=== PATIENT | male | born 1960 | race Caucasian/White ===

== ENCOUNTER 2020-05-01 04:22 | Emergency (ER) | payer OTHER, BC ==
[2020-05-01 04:29] VITALS: PULSE 89; RESP 16; TEMP 99
[2020-05-01] MEDS ORDERED: IBUPROFEN 600 MG TAB PO STA (05:01)
--- NOTE | 2020-05-01 05:09 | ED ---
Back Pain HPI - General Chief Complaint: Back Pain/Injury Stated Complaint: [facility] hip and neck injury Time Seen by Provider: 05/01/20 04:34 Source: patient Limitations: no limitations - History of Present Illness Initial Comments: This patient is 59-year-old man who presents to have evaluation of low back and neck injury. The patient states that he was at work tonight and he was tempted to raise a shelf that was stuck. He states that he lifted and it broke loose and then he felt a twinge in his low back and also his neck. The patient states that after. Time he was going to range of motion of his neck, and then he felt a subtle pop in the symptoms there resolved. He states that he does continue to have some right low back tightness. No radiation to the legs. No change in bladder or bowel function. No abdominal pain. MD Complaint: back pain, back injury -: minutes(s) Similar Symptoms Previously: No Place: work Radiation: none Severity: moderate Quality: aching Consistency: constant Improves With: none Worsens With: none Context: while lifting Associated Symptoms: denies other symptoms - Related Data Home Medications Medication Instructions Recorded Confirmed Amphetamine Sulfate [Evekeo Odt] 20 mg PO QAM 05/01/20 05/01/20 tiZANidine [Zanaflex] 4 mg PO Q6HR PRN 05/01/20 05/01/20 Allergies Allergy/AdvReac Type Severity Reaction Status Date / Time No Known Allergies Allergy Verified 05/01/20 04:29 Review of Systems ROS Statement: Those systems with pertinent positive or pertinent negative responses have been documented in the HPI. ROS Other: All systems not noted in ROS Statement are negative. Constitutional: Denies: fever, chills, weakness Respiratory: Denies: cough, dyspnea Cardiovascular: Denies: chest pain, palpitations Gastrointestinal: Denies: abdominal pain, nausea, vomiting Genitourinary: Denies: dysuria, testicular pain, testicular mass Musculoskeletal: Reports: as per HPI, back pain Skin: Denies: rash Neurological: Denies: headache, weakness, numbness, paresthesias Past Medical History Past Medical History: No Reported History History of Any Multi-Drug Resistant Organisms: None Reported Past Surgical History: No Surgical Hx Reported Past Psychological History: No Psychological Hx Reported Smoking Status: Current every day smoker Past Alcohol Use History: Occasional Past Drug Use History: None Reported General Exam Limitations: no limitations General appearance: alert, in no apparent distress Head exam: Present: atraumatic, normocephalic Eye exam: Present: normal appearance. Absent: scleral icterus, conjunctival injection Neck exam: Present: normal inspection, full ROM. Absent: tenderness, meningismus Respiratory exam: Present: normal lung sounds bilaterally. Absent: respiratory distress, wheezes, rales, rhonchi, stridor Cardiovascular Exam: Present: regular rate, normal rhythm, normal heart sounds. Absent: systolic murmur, diastolic murmur, rubs, gallop GI/Abdominal exam: Present: soft. Absent: distended, tenderness, guarding, rebound, rigid, pulsatile mass, hernia Extremities exam: Present: normal inspection, normal capillary refill. Absent: pedal edema, calf tenderness Back exam: Present: normal inspection, paraspinal tenderness. Absent: CVA tenderness (R), CVA tenderness (L), vertebral tenderness Neurological exam: Present: alert, normal gait, reflexes normal. Absent: motor sensory deficit Skin exam: Present: warm, dry, intact, normal color. Absent: rash Course Vital Signs 05/01/20 04:25 Temperature 99.0 F Pulse Rate 89 Respiratory 16 Rate Blood Pressure 153/101 O2 Sat by Pulse 96 Oximetry Disposition Clinical Impression: Strain of lumbar region, Hypertension Disposition: HOME SELF-CARE Condition: Good Instructions (If sedation given, give patient instructions): Acute Low Back Pain (ED), Hypertension (ED) Additional Instructions: As we discussed, your blood pressure was elevated today. This probably result of the injury. Follow-up within the next day to 2 days to have it rechecked in ensure that it is our returning to your baseline. She be started experiencing any symptoms related to the blood pressure return immediately for evaluation. Is patient prescribed a controlled substance at d/c from ED?: No Referrals: Kenny Ramos MD [Primary Care Provider] - 1-2 days
[2020-05-01] MEDS ORDERED: IBUPROFEN 600 MG STARTER PACK 4 TAB BTL PO STA (05:10)
[2020-05-01 05:24] VITALS: BP 148/102
== END 2020-05-01 05:18 | disposition home or self-care (01) ==
LOC: EC 04:22
DX: S39.012A Strain of muscle, fascia and tendon of lower back, initial encounter (principal); I10 Essential (primary) hypertension; F17.200 Nicotine dependence, unspecified, uncomplicated; X50.0XXA Overexertion from strenuous movement or load, initial encounter; Y92.69 Other specified industrial and construction area as the place of occurrence of the external cause
CPT/HCPCS: 99283

== ENCOUNTER 2023-10-16 21:26 | Emergency (ER) | payer BC ==
[2023-10-16 22:10] VITALS: TEMP 98.7
--- NOTE | 2023-10-16 22:32 | XR ---
EXAMINATION TYPE: XR shoulder complete RT DATE OF EXAM: 10/16/2023 9:57 PM CLINICAL INDICATION:Male, 63 years old with history of fall; H COMPARISON: None TECHNIQUE: XR shoulder complete RT; examined in AP, internally rotated and scapular Y projections. FINDINGS: No evidence of acute osseous pathology, joint dislocation, or soft tissue swelling. The remaining po rtions of the visualized chest are unremarkable. IMPRESSION: 1. No acute osseous pathology. 2. Mild shoulder osteoarthrosis.
--- NOTE | 2023-10-16 23:04 | ED ---
General Adult HPI - General Chief complaint: Extremity Injury, Upper Stated complaint: Right Arm Injury-[facility] Time Seen by Provider: 10/16/23 22:30 Source: patient Mode of arrival: ambulatory Limitations: no limitations - History of Present Illness Initial comments: 63-year-old male presenting to the ED with a chief complaint of right shoulder pain. Patient reports has been having some ongoing right shoulder pain. Patient states today slipped on oil and fell however reports he was able to catch himself with his right arm. No head injury at this time. Patient not on blood thinners. Denies any other injuries at this time. However, since then reports worsening right shoulder pain. No other complaints at this time. - Related Data Home Medications Medication Instructions Recorded Confirmed Amphetamine Sulfate [Evekeo Odt] 20 mg PO QAM 05/01/20 05/01/20 tiZANidine [Zanaflex] 4 mg PO Q6HR PRN 05/01/20 05/01/20 Allergies Allergy/AdvReac Type Severity Reaction Status Date / Time No Known Allergies Allergy Verified 10/16/23 21:40 Review of Systems ROS Statement: Those systems with pertinent positive or pertinent negative responses have been documented in the HPI. ROS Other: All systems not noted in ROS Statement are negative. Past Medical History Past Medical History: No Reported History History of Any Multi-Drug Resistant Organisms: None Reported Past Surgical History: No Surgical Hx Reported Past Psychological History: No Psychological Hx Reported Smoking Status: Current every day smoker Past Alcohol Use History: Occasional Past Drug Use History: None Reported General Exam Limitations: no limitations General appearance: alert, in no apparent distress Eye exam: Present: normal appearance Neck exam: Present: normal inspection Respiratory exam: Present: normal lung sounds bilaterally Cardiovascular Exam: Present: regular rate, normal rhythm GI/Abdominal exam: Present: soft Extremities exam: Present: other (Decreased range of motion of the right shoulder secondary to pain. Reports reproduction of pain upon external rotation of the right arm. Strength and sensation intact distally. Radial pulses intact.) Neurological exam: Present: alert, oriented X3 Skin exam: Present: warm, dry Course Vital Signs 10/16/23 10/16/23 21:36 23:12 Temperature 98.7 F Pulse Rate 88 81 Respiratory 18 20 Rate Blood Pressure 156/93 165/101 O2 Sat by Pulse 96 97 Oximetry Medical Decision Making - Medical Decision Making Was pt. sent in by a medical professional or institution (EDWARD Reyes, GENERAL ASSISTANT, urgent care, hospital, or care home...) When possible be specific @ -No Did you speak to anyone other than the patient for history (EMS, parent, family, police, friend...)? What history was obtained from this source @ -No Did you review nursing and triage notes (agree or disagree)? Why? @ -I reviewed and agree with nursing and triage notes Were old charts reviewed (outside hosp., previous admission, EMS record, old EKG, old radiological studies, urgent care reports/EKG's, care home records)? Report findings @ -No old charts were reviewed Differential Diagnosis (chest pain, altered mental status, abdominal pain women, abdominal pain men, vaginal bleeding, weakness, fever, dyspnea, syncope, headache, dizziness, GI bleed, back pain, seizure, CVA, palpatations, mental health, musculoskeletal)? @ -Differential Musculoskeletal Muscular strain, contusion, ligament sprain, fracture, arthritis, septic arthritis, bursitis, cellulitis, muscle spasm, nerve compression, DVT, arterial occlusion, herpes zoster, electrolyte abnormality, tumor.... This is not meant to be in all inclusive list EKG interpreted by me (3pts min.). @ -None X-rays interpreted by me (1pt min.). @ -X-ray of the right shoulder interpreted me which revealed no evidence of acute finding however did show some evidence of osteoarthritis. CT interpreted by me (1pt min.). @ -None done U/S interpreted by me (1pt. min.). @ -None done What testing was considered but not performed or refused? (CT, X-rays, U/S, labs)? Why? @ -None What meds were considered but not given or refused? Why? @ -None Did you discuss the management of the patient with other professionals (professionals i.e. EDWARD Reyes, GENERAL ASSISTANT, lab, RT, psych nurse, forensic social worker, post anesthesia room nurse, teacher, agricultural extension officer, hospice case manager)? Give summary @ -No Was smoking cessation discussed for >3mins.? @ -No Was critical care preformed (if so, how long)? @ -No Were there social determinants of health that impacted care today? How? (Homelessness, low income, unemployed, alcoholism, drug addiction, transportation, low edu. Level, literacy, decrease access to med. care, penitentiary, rehab)? @ -No Was there de-escalation of care discussed even if they declined (Discuss DNR or withdrawal of care, Hospice)? DNR status @ -No What co-morbidities impacted this encounter? (DM, HTN, Smoking, COPD, CAD, Cancer, CVA, ARF, Chemo, Hep., AIDS, mental health diagnosis, sleep apnea, morbid obesity)? @ -None Was patient admitted / discharged? Hospital course, mention meds given and route, prescriptions, significant lab abnormalities, going to OR and other pertinent info. @ -Discharge 63-year-old male presenting to the ED with a chief complaint of right shoulder pain. Patient reports that this is chronic in nature however while at work left on oriole and fell and was able to catch himself with his right arm. No head injury at this time. Patient not on blood thinners. Denies any other injuries at this time. Since then reports worsening acute on chronic right shoulder pain. On exam does have reproduction of pain with external rotation of the right upper extremity. X-ray revealed no evidence of acute finding. Discharged home with a right shoulder sling and referral to see orthopedics. Discussed return precautions with patient who verbalized agreement. Undiagnosed new problem with uncertain prognosis? @ -No Drug Therapy requiring intensive monitoring for toxicity (Heparin, Nitro, Insulin, Cardizem)? @ -No Were any procedures done? @ -No Diagnosis/symptom? @ -Right shoulder pain Acute, or Chronic, or Acute on Chronic? @ -Acute Uncomplicated (without systemic symptoms) or Complicated (systemic symptoms)? @ -Uncomplicated Side effects of treatment? @ -No Exacerbation, Progression, or Severe Exacerbation? @ -No Poses a threat to life or bodily function? How? (Chest pain, [place], MD, pneumonia, PE, COPD, DKA, ARF, appy, cholecystitis, CVA, Diverticulitis, Homicidal, Suicidal, threat to staff... and all critical care pts) @ -No Disposition Clinical Impression: Right shoulder pain Disposition: HOME SELF-CARE Condition: Good Instructions (If sedation given, give patient instructions): Shoulder Sprain (ED), Rotator Cuff Injury (ED) Additional Instructions: Please return to the Emergency Department if symptoms worsen or any other concerns. Please follow-up with your PCP or orthopedics. Is patient prescribed a controlled substance at d/c from ED?: No Referrals: Familia Murguia MD [Primary Care Provider] - 1-2 days Bipin Estrada MD [Medical Doctor] - 1-2 days Time of Disposition: 23:16
[2023-10-16] MEDS: KETOROLAC 15 MG/ML 1 ML VIAL IM STA (23:05)
[2023-10-16 23:16] VITALS: BP 165/101; PULSE 81; RESP 20
== END 2023-10-16 23:42 | disposition home or self-care (01) ==
LOC: EC 21:26
DX: M25.511 Pain in right shoulder (principal); F17.200 Nicotine dependence, unspecified, uncomplicated; W01.0XXA Fall on same level from slipping, tripping and stumbling without subsequent striking against object, initial encounter
CPT/HCPCS: 99283; 96372; 73030; J1885

== ENCOUNTER 2023-10-18 07:21 | Emergency (ER) | payer OTHER, BC ==
[2023-10-18 07:41] VITALS: BP 169/116; PULSE 95; RESP 18; TEMP 98
--- NOTE | 2023-10-18 07:42 | ED ---
General Adult HPI - General Chief complaint: Extremity Injury, Upper Stated complaint: [facility]-arm injury Source: patient Mode of arrival: ambulatory Limitations: no limitations - History of Present Illness Initial comments: 63-year-old male who presents emergency department with continued right shoulder pain. Patient sustained an injury 2 days ago after he was at work and slipped on some oil. He fell and landed on his right arm. He came to our emergency department and x-ray was performed. No acute fracture was identified. Patient was given a sling. Instructed to take Motrin for pain control and follow-up with orthopedics for an MRI. Patient states he attempted to go back to work however this is not working out. 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 He states he has been taking Motrin 800 mg 3 times a day without any alleviation in his pain. He presents today requesting stronger pain control and a work note. Patient does have an appointment on Monday with his primary care doctor. No other alleviating, precipitating modifying factors - Related Data Home Medications Medication Instructions Recorded Confirmed Amphetamine Sulfate [Evekeo Odt] 20 mg PO QAM 05/01/20 05/01/20 tiZANidine [Zanaflex] 4 mg PO Q6HR PRN 05/01/20 05/01/20 Previous Rx's Medication Instructions Recorded HYDROcodone/APAP 7.5-325MG [Morganza 1 tab PO Q4HR PRN #18 tab 10/18/23 7.5-325] Allergies Allergy/AdvReac Type Severity Reaction Status Date / Time No Known Allergies Allergy Verified 10/18/23 07:26 Review of Systems ROS Statement: Those systems with pertinent positive or pertinent negative responses have been documented in the HPI. ROS Other: All systems not noted in ROS Statement are negative. Past Medical History Past Medical History: No Reported History History of Any Multi-Drug Resistant Organisms: None Reported Past Surgical History: No Surgical Hx Reported Past Psychological History: No Psychological Hx Reported Smoking Status: Current every day smoker Past Alcohol Use History: Occasional Past Drug Use History: None Reported General Exam Limitations: no limitations General appearance: alert, in no apparent distress Head exam: Present: normocephalic ENT exam: Present: normal exam, mucous membranes moist Neck exam: Present: normal inspection. Absent: tenderness, meningismus, lymphadenopathy Respiratory exam: Present: normal lung sounds bilaterally. Absent: respiratory distress, wheezes, rales, rhonchi, stridor Cardiovascular Exam: Present: regular rate Extremities exam: Present: other (Patient has tenderness to palpation of the right glenohumeral joint. Patient has restricted range of motion with abduction and flexion. No elbow or wrist pain. Intact sensation in the median, radial, ulnar and anterior interosseous nerve groups. 2+ radial and ulnar pulses) Course Vital Signs 10/18/23 07:24 Temperature 98 F Pulse Rate 95 Respiratory 18 Rate Blood Pressure 169/116 O2 Sat by Pulse 98 Oximetry Medical Decision Making - Medical Decision Making Was pt. sent in by a medical professional or institution (, PA, JIG BORE TOOL MAKER, urgent care, hospital, or senior living...) When possible be specific @ -No Did you speak to anyone other than the patient for history (EMS, parent, family, police, friend...)? What history was obtained from this source @ -No Did you review nursing and triage notes (agree or disagree)? Why? @ -I reviewed and agree with nursing and triage notes Were old charts reviewed (outside hosp., previous admission, EMS record, old EKG, old radiological studies, urgent care reports/EKG's, senior living records)? Report findings @ -I reviewed the patient's ED visit from 2 days ago including his x-ray Differential Diagnosis (chest pain, altered mental status, abdominal pain women, abdominal pain men, vaginal bleeding, weakness, fever, dyspnea, syncope, headache, dizziness, GI bleed, back pain, seizure, CVA, palpatations, mental health, musculoskeletal)? @ -Differential Musculoskeletal Muscular strain, contusion, ligament sprain, fracture, arthritis, septic arthritis, bursitis, cellulitis, muscle spasm, nerve compression, DVT, arterial occlusion, herpes zoster, electrolyte abnormality, tumor.... This is not meant to be in all inclusive list EKG interpreted by me (3pts min.). @ -Not done X-rays interpreted by me (1pt min.). @ -None done CT interpreted by me (1pt min.). @ -None done U/S interpreted by me (1pt. min.). @ -None done What testing was considered but not performed or refused? (CT, X-rays, U/S, labs)? Why? @ -Repeat x-ray was considered however unlikely to demonstrate new finding 2 days after for study What meds were considered but not given or refused? Why? @ -None Did you discuss the management of the patient with other professionals (professionals i.e. , PA, JIG BORE TOOL MAKER, lab, RT, psych nurse, social worker assistant, industrial millwright, teacher, defence force senior officer, mental health case manager)? Give summary @ -No Was smoking cessation discussed for >3mins.? @ -No Was critical care preformed (if so, how long)? @ -No Were there social determinants of health that impacted care today? How? (Homelessness, low income, unemployed, alcoholism, drug addiction, transportation, low edu. Level, literacy, decrease access to med. care, care home, rehab)? @ -No Was there de-escalation of care discussed even if they declined (Discuss DNR or withdrawal of care, Hospice)? DNR status @ -No What co-morbidities impacted this encounter? (DM, HTN, Smoking, COPD, CAD, Cancer, CVA, ARF, Chemo, Hep., AIDS, mental health diagnosis, sleep apnea, morbid obesity)? @ -None Was patient admitted / discharged? Hospital course, mention meds given and route, prescriptions, significant lab abnormalities, going to OR and other pertinent info. @ -Upon arrival patient was placed into room 29. Thorough history and physical exam was performed. Patient was given a prescription for Morganza. He is to alternate taking this with Motrin every 4 hours. He is to wear the sling. Keep it rested, iced and elevated. He will be given a work note to be off of work until evaluated by his primary care. He is to return for any new or worsening symptoms. Patient agreeable plan he is discharged in stable condition Undiagnosed new problem with uncertain prognosis? @ -No Drug Therapy requiring intensive monitoring for toxicity (Heparin, Nitro, Insulin, Cardizem)? @ -No Were any procedures done? @ -No Diagnosis/symptom? @ -Acute right shoulder pain, suspected rotator cuff injury Acute, or Chronic, or Acute on Chronic? @ -Acute Uncomplicated (without systemic symptoms) or Complicated (systemic symptoms)? @ -Complicated Side effects of treatment? @ -No Exacerbation, Progression, or Severe Exacerbation? @ -No Poses a threat to life or bodily function? How? (Chest pain, [place], [place], pneumonia, PE, COPD, DKA, ARF, appy, cholecystitis, CVA, Diverticulitis, Homicidal, Suicidal, threat to staff... and all critical care pts) @ -No Disposition Clinical Impression: Right shoulder pain Disposition: HOME SELF-CARE Condition: Stable Instructions (If sedation given, give patient instructions): Shoulder Pain (ED) Additional Instructions: Please follow with the orthopedic surgeon. Ask your PCP to order an MRI if possible. Return for any new or worsening symptoms. Prescriptions: HYDROcodone/APAP 7.5-325MG [Morganza 7.5-325] 1 tab PO Q4HR PRN #18 tab PRN Reason: Pain Is patient prescribed a controlled substance at d/c from ED?: Yes When asked, does pt state using other controlled substances?: No If prescribed controlled substance>3 days was MAPS reviewed?: Prescribed <3 Days If opioid is for acute pain is fill amount 7 days or less?: Yes Referrals: Familia Murguia MD [Primary Care Provider] - 1-2 days Time of Disposition: 07:39
== END 2023-10-18 07:44 | disposition home or self-care (01) ==
LOC: EC 07:21
DX: S49.91XA Unspecified injury of right shoulder and upper arm, initial encounter (principal); F17.200 Nicotine dependence, unspecified, uncomplicated; W01.0XXA Fall on same level from slipping, tripping and stumbling without subsequent striking against object, initial encounter; Y99.0 Civilian activity done for income or pay
CPT/HCPCS: 99283

== ENCOUNTER → 2023-11-09 | Outpatient (CLI) | payer OTHER ==
--- NOTE | 2023-11-10 09:25 | MR ---
EXAMINATION TYPE: MR shoulder RT wo con DATE OF EXAM: 11/09/2023 4:51 PM COMPARISON: NONE HISTORY: Right shoulder pain for about 3 weeks due to fall at work. TECHNIQUE: Multiplanar multispin echo imaging of the right shoulder was performed. FINDINGS: Rotator cuff : There is a complete retracted tear of the supraspinatus tendon with fluid filled gap o f 3.1 cm. No evidence for muscular atrophy. Partial tear along the undersurface of the infraspinatus noted as well. There may be mild edema or atrophy of the infraspinatus musculature. Subscapularis ten don is intact however appears thickened and this may reflect tendinosis. Bursa: No bursal effusion or thickening is seen. Small joint effusion noted. Subcoracoid fluid also n oted. Musculature: There is no muscular tear, contusion, or atrophy. Acromioclavicular joint : Moderate AC joint arthropathy. Subacromial spurring resulting in impingemen t. Osseous structures : There are no fractures or regions of abnormal bone marrow signal intensity. Long biceps tendon : The biceps tendon is normally situated within the bicipital groove. No complete or partial biceps tendon tear is present. Glenohumeral Joint fluid : There is no glenohumeral joint effusion. Cartilage and Bone : No focal hyaline cartilage defects are noted. There is flattening of the superio r lateral head of the humerus which may reflect chronic Hill-Sachs deformity. Subchondral cyst format ion noted and degenerative narrowing glenohumeral joint space. Labrum : Diminution of the superior glenoid labrum may reflect tear. OTHER FINDINGS : none IMPRESSION: 1. There is a complete retracted tear of the supraspinatus tendon with fluid filled gap of 3.1 cm. No evidence for muscular atrophy. Partial tear along the undersurface of the infraspinatus noted as wel l. 2.Moderate AC joint arthropathy. Subacromial spurring resulting in impingement. 3.Diminution of the superior glenoid labrum may reflect tear. Also suspect chronic Hill-Sachs deformi ty.
== END | disposition home or self-care (01) ==
LOC: RADMRIMAIN 15:54
PROVIDERS: ATTEND Orthopaedic Surgery
DX: M19.011 Primary osteoarthritis, right shoulder (principal); M25.811 Other specified joint disorders, right shoulder; M75.111 Incomplete rotator cuff tear or rupture of right shoulder, not specified as traumatic; M75.121 Complete rotator cuff tear or rupture of right shoulder, not specified as traumatic

== ENCOUNTER → 2023-11-17 | Outpatient (CLI) | payer BC, OTHER ==
--- NOTE | 2023-11-17 11:57 | XR ---
EXAMINATION TYPE: XR chest 2V DATE OF EXAM: 11/17/2023 10:31 AM CLINICAL INDICATION:Male, 63 years old with history of Z01.818 PRE SURGICAL; H COMPARISON: None TECHNIQUE: XR chest 2V Frontal and lateral views of the chest. FINDINGS: Lungs/Pleura: There is no evidence of pleural effusion, focal consolidation, or pneumothorax. Pulmonary vascularity: Unremarkable. Heart/mediastinum: Cardiomediastinal silhouette is unremarkable. Musculoskeletal: No acute osseous pathology. IMPRESSION: No acute cardiopulmonary disease/process.
[2023-11-17 16:30] LABS: Basophils # (A) 0.07 X 10*3/uL (0.00-0.10); Basophils % (A) 1.1 %; Eosinophils # (A) 0.29 X 10*3/uL (0.04-0.35); Eosinophils % (A) 4.4 %; HCT 45.1 % (39.6-50.0); HGB 15.9 g/dL (13.0-17.0); Lymphocytes # (A) 2.23 X 10*3/uL (0.90-5.00); Lymphocytes % (A) 33.8 %; MCHC 35.3 g/dL (32.0-37.0); MCV 93.6 FL (80.0-97.0); Mean Platelet Volume 10.6 FL (9.5-12.2); Monocytes # (A) 0.62 X 10*3/uL (0.20-1.00); Monocytes % (A) 9.4 %; NRBC Per 100 WBC 0 X 10*3/uL (0.00-0.01); Neutrophils # (A) 3.37 X 10*3/uL (1.80-7.70); Platelet Count 195 X 10*3/uL (140-440); RBC 4.82 X 10*6/uL (4.40-5.60); RDW 11.8 % (11.5-14.5)
[2023-11-17 16:31] LABS: BUN/Creat Ratio 15.27 Ratio (12.00-20.00); Blood Urea Nitrogen 16.8 mg/dL (9.0-27.0); Carbon Dioxide 27.9 mmol/L (21.6-31.8); Chloride 103 mmol/L (96-109); Glucose 132 mg/dL (70-110); Potassium 4.2 mmol/L (3.5-5.5); Sodium 141 mmol/L (135-145)
== END | disposition home or self-care (01) ==
LOC: LABWHC1 09:54
PROVIDERS: ATTEND Orthopaedic Surgery
DX: Z01.818 Encounter for other preprocedural examination (principal); S46.011A Strain of muscle(s) and tendon(s) of the rotator cuff of right shoulder, initial encounter; R94.31 Abnormal electrocardiogram [ECG] [EKG]; X58.XXXA Exposure to other specified factors, initial encounter
CPT/HCPCS: 36415; 71046; 80048; 85025; 93005

== ENCOUNTER → 2023-12-01 | Day surgery (SDC) | payer BC, OTHER ==
[2023-11-28 18:49] VITALS: BMI 28.5
--- NOTE | 2023-11-30 12:07 | P.HPOR ---
History of Present Illness H&P Date: 11/30/23 Chief Complaint: Right shoulder pain The patient is a 63-year-old [id number] male who presents with right shoulder pain after an injury at work on 10/16/2023. He slipped and fell on some oil at work. He has had pain ever since with any attempted overhead use and at night. He has been wearing a sling. He denies previous problems or injury to the shoulder. Review of Systems As per HPI Past Medical History Past Medical History: Hyperlipidemia, Hypertension History of Any Multi-Drug Resistant Organisms: None Reported Past Surgical History: No Surgical Hx Reported Past Anesthesia/Blood Transfusion Reactions: No Reported Reaction Additional Past Anesthesia/Blood Transfusion Reaction / Comment(s): NO PRIOR ANESTHESIA HX Smoking Status: Current every day smoker - Past Family History Mother Family Medical History: No Reported History Medications and Allergies Home Medications Medication Instructions Recorded Confirmed Type HYDROcodone/APAP 7.5-325MG [Amistad 1 tab PO Q4HR PRN #18 tab 10/18/23 11/28/23 Rx 7.5-325] Atorvastatin [Lipitor] 40 mg PO HS 11/28/23 11/28/23 History Dextroamphetamine/Amphetamine 20 mg PO DAILY 11/28/23 11/28/23 History [Adderall] amLODIPine [Norvasc] 5 mg PO DAILY 11/28/23 11/28/23 History Allergies Allergy/AdvReac Type Severity Reaction Status Date / Time No Known Allergies Allergy Verified 11/28/23 18:00 Physical Examination - Shoulder right Tenderness with palpation: anterior, bicipital groove Pain: with abduction, with forward flexion ROM: forward flexion: 80 degrees ROM: internal rotation: lower lumbar ROM: external rotation: 30 degrees Crepitus with motion: Yes Strength: abduction: 3/5 Strength: external rotation: 4/5 Tests: internal impingement tests: positive, external impingment tests: positive Results The patient is a well-developed well-nourished male proximal a 6 foot tall, 210 pounds of endomorphic habitus. HEENT exam is nonfocal, neck supple. He is tender about the right shoulder anterior subacromial space. Moderate crepitus is noted. Active forward elevation is 75, passive is 140. Impingement test, Neer test, and speed test are positive. His distal neurovascular appears intact in the right upper extremity. - Diagnostic results Shoulder MRI: image reviewed (MRI of the right shoulder is reviewed and shows a large retracted supraspinatus tear without significant atrophy. Deformity of the humeral head is noted. There is significant fluid in the bicipital groove.) Assessment and Plan Assessment: Acute right rotator cuff tear Possible proximal biceps rupture Plan: I talked to the patient at length regarding his condition along with treatment options. At this point he is quite symptomatic and limited having pain and weakness after this acute injury. After a thorough discussion he opts to proceed with surgery. We will plan to proceed with right shoulder arthroscopy with possible subacromial decompression/rotator cuff repair/possible biceps tenotomy versus debridement. We will likely perform that as an outpatient procedure. Risks and benefits were discussed at length in layman's terms.
[~2023-12-01] MED LIST: DEXAMETHASONE SOD PHOSPHATE 4 MG/ML 1 ML VIAL ONE; GLYCOPYRROLATE 0.2 MG/ML 2 ML VIAL ONE; HYDROmorphone 0.5 MG/0.5 ML SYRINGE IVP PRN; LIDOCAINE 1% (10MG/ML) FOR IV START INTRADERMA PRN; LIDOCAINE 1% INJ 10MG/ML (20 ML MDV) ONE; MIDAZOLAM 2 MG/2 ML VIAL ONE; NEOSTIGMINE 1 MG/ML 10 ML VIAL ONE; PHENYLEPHRINE 10 MG/ML VIAL ONE; PHENYLEPHRINE-0.9% NACL SYG 1,000 MCG/10 ML SYRINGE ONE; PROPOFOL 10 MG/ML 20 ML VIAL IV ONE; ROCURONIUM 10 MG/ML (5 ML VIAL) IV ONE; ROPIVACAINE 5 MG/ML 30 ML VIAL ONE; SUCCINYLCHOLINE CHLORIDE 200 MG/10 ML VIAL IV ONE; WATER FOR INJECTION, STERILE 10 ML VIAL IV ONE; ePHEDrine 50 MG/ML 1 ML VIAL ONE; fentaNYL (PF) 50 MCG/ML 2 ML AMP ONE
[2023-12-01] MEDS: LACTATED RINGERS 1,000 ML IV SCH (06:21)
[2023-12-01] MEDS: DEXAMETHASONE SOD PHOSPHATE 4 MG/ML 1 ML VIAL IV ONE (06:40)
[2023-12-01] MEDS: ONDANSETRON 4 MG/2 ML VIAL IVP ONE (06:40)
[2023-12-01] MEDS: MIDAZOLAM 2 MG/2 ML VIAL IV PRN (06:46)
--- NOTE | 2023-12-01 06:57 | P.ANPRN ---
Procedure Note - Anesthesia - Nerve Block Performed Right Interscalene Single Time Out Performed: Yes Date of Procedure: 12/01/23 Procedure Start Time: 06:44 Procedure Stop Time: 06:50 Location of Patient: PreOp Indication: Acute Post-Operative Pain, Dx/Pain Location (Right Shoulder Pain), Requested by Surgeon Sedation Type: Sedate with meaningful contact maintained Preparation: Sterile Prep Position: Supine Catheter: None Needle Types: Pajunk Needle Gauge: 21 Ultrasound used to visualize needle placement: Yes Ultrasound used to observe medication spread: Yes Injectate: 0.5% Ropivacaine (see comment for volume) Blood Aspirated: No Pain Paresthesia on Injection Noted: No Resistance on Injection: Normal Image Stored and Saved: Yes Events: Uneventful and Well Tolerated
[2023-12-01 07:26] VITALS: RESP 16
[2023-12-01] MEDS: EPINEPHrine (PF) 1 ML in SODIUM CHLORIDE 0.9% IRRIGATIO 3,000 ML IRRIGATION ONE ×4 (07:54)
[2023-12-01] MEDS: LACTATED RINGERS 1,000 ML IV ONE ×2 (08:41)
--- NOTE | 2023-12-01 09:19 | P.OP ---
Date of Procedure: 12/01/23 Preoperative Diagnosis: Right acute rotator cuff tear Postoperative Diagnosis: 5 cm right rotator cuff tear/proximal biceps rupture/acromioclavicular joint arthritis Procedure(s) Performed: Right shoulder arthroscopic subacromial decompression/distal clavicular resection/biceps tenotomy/rotator cuff repair Implants: Arthrex 4.75 mm swivel lock anchor x 3, 5.5 mm swivel lock anchor x 2 Anesthesia: SHAYY, regional Surgeon: Darvin Roland Weed Cooking Operator #1: Theo Herrera Estimated Blood Loss (ml): 10 Pathology: none sent Condition: stable Disposition: PACU Indications for Procedure: The patient is a 63-year-old male who presents after a recent work injury with significant pain and weakness. Clinically and by MRI he was noted to have evidence of an acute rotator cuff tear. A discussion of the risks and benefits of operative intervention versus conservative measures was made with the patient. He opted to proceed with surgery. Operative risks to include infection, neurovascular injury, development of blood clots, possible tendon rerupture, possible postoperative stiffness, and possible need for subsequent procedures was discussed. Informed consent was obtained. Operative Findings: As below Description of Procedure: The patient was brought to the operating room, and after induction of general anesthesia was placed in a beachchair position. A preoperative interscalene block was placed for postoperative analgesia. I examined the right shoulder. There was no gross block to passive motion or gross glenohumeral instability. The right upper extremity was prepped and draped in normal fashion. The bony outlines the acromion, distal clavicle, and coracoid process were outlined with a skin marker. The glenohumeral joint was inflated with 50 mL of saline ut ilizing a spinal needle from posterior approach. A posterior portal was made through a 5 mm skin incision 1 cm medial and inferior to the posterior lateral border time. A blunt trocar was used to easily into the joint. Diagnostic arthroscopy was performed. An anterior portal was made just lateral to the coracoid process entering the joint above the subscapularis tendon. The subscapularis tendon appeared to be intact. Anterior labrum was intact. The inferior recess was inspected. The posterior labrum was intact. The biceps was ruptured off the superior labrum and scarred to the superior capsule/anterior cuff. It was elected to proceed with release at this point. This was released from the superior labrum with electrocautery and was allowed to retract to the bicipital groove. On inspection the rotator cuff, a 5 cm tear involving the supraspinatus and infraspinatus was noted with some retraction. The arthroscope was then placed into the subacromial space. A lateral portal was made 2 centimeters inferior to the anterior lateral border of the acromion. The rotator cuff was then mobilized with a traction suture. This was then brought back to the greater tuberosity. The soft tissue on the undersurface of the acromion was debrided with a motorized shaver and electrocautery clearly defining the anterior medial and lateral borders as well as the distal clavicle. An anterior inferior acromioplasty was performed with a motorized hoang starting anterolateral, then extending this posteriorly, then extending this medially. I converted to a flat acromion and this was verified in the posterior and lateral viewing portals. The distal clavicle appeared to impinge on the subacromial space. The distal 8 mm the clavicle was resected with a motorized bur. The greater tuberosity was lightly decorticating with a shaver down to a bleeding bony surface. An accessory superior lateral portal was made just off the lateral edge of the acromion for anchor placement. 3 anchors were then placed just off the articular surface with the appropriate starting awl. 4.75 mm anchors preloaded with #2 fiber tape were placed. Good purchase was obtained. These fiber tapes were then passed the rotator cuff with a scorpion suture passer. A lateral row was created crisscrossing these tapes. 5.5 mm swivel lock anchors x2 were placed laterally. Good purchase was obtained. Final arthroscopic view showed adequate compression at the footprint. The arthroscope was then removed. The portals were closed with simple 3-0 nylon sutures. A sterile dressing was applied in addition to an abductor brace. The patient was then awoken from general anesthesia and transferred to recovery room in good condition. Blood loss was estimated at 10 mL. No complications were incurred. Sponge and needle counts were correct in the case. Antione LEON assisted and the major components of the case to include arm positioning, anchor placement, and rotator cuff repair.
[2023-12-01 09:42] VITALS: TEMP 98
[2023-12-01 11:08] VITALS: BP 116/71; PULSE 80
== END | disposition home or self-care (01) ==
LOC: OR 05:35
PROVIDERS: ATTEND Orthopaedic Surgery
DX: S46.011A Strain of muscle(s) and tendon(s) of the rotator cuff of right shoulder, initial encounter (principal); M19.011 Primary osteoarthritis, right shoulder; I10 Essential (primary) hypertension; G89.18 Other acute postprocedural pain; F17.200 Nicotine dependence, unspecified, uncomplicated; E78.5 Hyperlipidemia, unspecified; Z79.899 Other long term (current) drug therapy; W01.0XXA Fall on same level from slipping, tripping and stumbling without subsequent striking against object, initial encounter
CPT/HCPCS: 64415; 29824; 29826; 29827; 29828; C1713 ×3; C1894; J2250; J0330; J1100; J2710; J0690; J2405; J0171; J2001; J3010; J2795; J2704; J2371 ×2